=== PATIENT | female | born 1990 | race African-American/Black ===

== ENCOUNTER 2016-05-21 12:20 | Emergency (ER) | payer OTHER ==
[~2016-05-21] VITALS: Ht 180.3 cm; Wt 91.5 kg
[~2016-05-21 12:20] MED LIST: ENDOCET 5-3251 EACH PO; IBUPROFEN800 MG PO; PRENATABS FA T1 EACH PO; ZOFRAN4 MG PO
[2016-05-21] MEDS ORDERED: ALEVE220 M2 PO (13:52)
[2016-05-21] MEDS ORDERED: CLINDAMYCIN HC150 MG PO (14:07)
[2016-05-21] MEDS ORDERED: NAPROXEN500 MG PO (14:07)
[2016-05-21 14:40] VITALS: BP 134/88
== END 2016-05-21 14:41 | disposition home or self-care (01) ==
LOC: EME 12:20
PROC: 3E0T3BZ Introduction of Anesthetic Agent into Peripheral Nerves and Plexi, Percutaneous Approach (ICD-10-PCS; principal; 2016-05-21)
DX: K08.89 Other specified disorders of teeth and supporting structures (principal); Z88.1 Allergy status to other antibiotic agents; Z88.2 Allergy status to sulfonamides
CPT/HCPCS: 99281; 99283

== ENCOUNTER 2017-07-11 14:19 | Emergency (ER) | payer OTHER ==
[~2017-07-11] VITALS: Ht 182.9 cm; Wt 89.9 kg
[~2017-07-11 14:19] MED LIST changes: +ALEVE220 M2 PO; +CLINDAMYCIN HC150 MG PO; +NAPROXEN500 MG PO
[2017-07-11 16:45] VITALS: BP 149/91
== END 2017-07-11 16:45 | disposition home or self-care (01) ==
LOC: EME 14:19
PROC: 0CQ0XZZ Repair Upper Lip, External Approach (ICD-10-PCS; principal; 2017-07-11)
DX: S01.511A Laceration without foreign body of lip, initial encounter (principal); Y09 Assault by unspecified means; F17.200 Nicotine dependence, unspecified, uncomplicated; Z88.2 Allergy status to sulfonamides
CPT/HCPCS: 99281; 99284